=== PATIENT | male | born 2005 | race Two or more races ===

== ENCOUNTER 2025-03-02 17:44 | Emergency (ER) | payer OTHER ==
[~2025-03-02] VITALS: Ht 182.9 cm; Wt 72.6 kg
[2025-03-02] MEDS ORDERED: ORPHENADRINE CITRATE 30 MG/ML AMPUL IM STA (18:52)
[2025-03-02] MEDS ORDERED: KETOROLAC TROMETHAMINE 30 MG VIAL IM STA (18:52)
[2025-03-02] MEDS ORDERED: DEXAMETHASONE SODIUM PHOSPHATE 4 MG/ML VIAL IM STA (18:52)
[2025-03-02] MEDS ORDERED: KETOROLAC TROMETHAMINE 30 MG VIAL ONE (19:17)
[2025-03-02] MEDS ORDERED: ORPHENADRINE CITRATE 30 MG/ML AMPUL ONE (19:17)
[2025-03-02] MEDS ORDERED: DEXAMETHASONE SODIUM PHOSPHATE 4 MG/ML VIAL ONE (19:17)
== END 2025-03-02 21:11 | disposition home or self-care (01) ==
LOC: EMR PED 17:45 → ER 17:45 → EMR PED 18:59
DX: M54.50 Low back pain, unspecified (principal); Z91.018 Allergy to other foods

== ENCOUNTER 2025-04-02 16:00 | Emergency (ER) | payer OTHER ==
[~2025-04-02] VITALS: Ht 182.9 cm; Wt 71.7 kg
[2025-04-02] MEDS ORDERED: POLYETHYLENE GLYCOL 3350 17 GM BLIST.PACK PO STA (16:46)
[2025-04-02] MEDS ORDERED: GLYCERIN 2.1 GM SUPP.RECT RECTAL STA (16:47)
[2025-04-02 18:21] LABS: BASO % 0.3 % (0.1-1.2); EOS # 0.16 (0.04-0.54); EOS % 2.2 % (0.7-7.0); HEMATOCRIT 45.8 % (40.1-51.0); HEMOGLOBIN 15.2 g/dL (13.7-17.5); LYMPH # 2.82 (1.18-3.74); LYMPH % 38.8 % (19.3-53.1); MEAN CORPUSCULAR HEMOGLOBIN 28.5 pg (25.6-32.2); MONO # 0.61 (0.24-0.82); MONO % 8.4 % (4.7-12.5); NEUT # 3.63 (1.56-6.13); PLATELET COUNT 239 K/uL (163-369); RED BLOOD COUNT 5.34 M/uL (4.63-6.08); RED CELL DISTRIBUTION WIDTH 12.5 % (11.6-14.4)
[2025-04-02 18:40] LABS: INR 1.02; PARTIAL THROMBOPLASTIN TIME 26.4 SECONDS (22.0-34.0); PROTHROMBIN TIME 11.1 SECONDS (9.0-11.5)
[2025-04-02 18:51] LABS: ALBUMIN 4.3 gm/dL (3.4-5.0); ALKALINE PHOSPHATASE 67 U/L (50-136); ALT/SGPT 21 U/L (12-78); ANION GAP 10 (10.0-20.0); AST/SGOT 27 U/L (15-37); BILIRUBIN TOTAL 0.75 mg/dL (0.3-1.2); BLOOD UREA NITROGEN 15 mg/dL (7-18); BUN CREA RATIO 15 (7.0-25.0); CALCIUM 9.4 mg/dL (8.5-10.1); CARBON DIOXIDE 27 mEq/L (21-32); CHLORIDE 105 mmol/L (98-107); CREATININE SERUM 1.02 mg/dL (0.70-1.30); GFR 94.09; GLOBULINA 4.2 G/DL (2.4-3.5); GLUCOSE FASTING 98 mg/dL (65-100); OSMOLALITY SERUM 276 MOSM/KG (275-295); POTASSIUM 4.39 mEq/L (3.5-5.1); SODIUM 138 mmol/L (136-145); TOTAL PROTEIN 8.5 gm/dL (6.4-8.2)
[2025-04-02 19:16] LABS: URINE APPEARANCE Clear; URINE BILIRRUBIN Negative (NEGATIVE); URINE BLOOD Negative; URINE COLOR Yellow; URINE GLUCOSE Negative (NEGATIVE); URINE KETONE Trace (NEGATIVE); URINE LEUKOCYTE Negative; URINE NITRATE Negative; URINE PROTEIN Negative (NEGATIVE)
[2025-04-02 19:19] LABS: C-REACTIVE PROTEIN < 0.29 MG/DL (0.00-0.29)
[2025-04-02 19:20] LABS: URINE BACTERIA 23.2 uL (0.0-1933); URINE WBC 1.8 uL (0.0-23.2)
[2025-04-02 19:52] LABS: URINE EPITHELIAL CELLS 0.1 uL (0.0-38.8)
== END 2025-04-02 23:06 | disposition designated cancer center or children's hospital (05) ==
LOC: EMR PED 16:00
DX: T18.5XXA Foreign body in anus and rectum, initial encounter (principal); W44.8XXA Other foreign body entering into or through a natural orifice, initial encounter; Y93.89 Activity, other specified; Y92.89 Other specified places as the place of occurrence of the external cause; Y99.9 Unspecified external cause status; Z91.018 Allergy to other foods